=== PATIENT | female | born 1985 | race African-American/Black ===

== ENCOUNTER 2019-01-07 16:09 | Inpatient (IN) | payer MEDICAID, OTHER ==
[~2019-01-07] VITALS: Ht 170.2 cm; Wt 75.7 kg
[2019-01-07] MEDS ORDERED: DEXT 5%/LR + PITOCIN 20UNITS/L 1,000 ML IV ONE (17:01)
[2019-01-07] MEDS ORDERED: LACTATED RINGERS 1,000 ML IV SCH (17:06)
[2019-01-07] MEDS ORDERED: METHYLERGONOVINE MALEATE 0.2 MG/ML IM PRN (17:15)
[2019-01-07] MEDS ORDERED: CARBOPROST TROMETHAMINE 250 MCG/ML AMPUL IM PRN (17:15)
[2019-01-07] MEDS ORDERED: NALOXONE HCL 0.4 MG/ML 1ML VIAL IM PRN (17:15)
[2019-01-07] MEDS: DEXT 5%/LR + PITOCIN 20UNITS/L 1,000 ML IV SCH ×2 (17:33→17:34)
[2019-01-07] MEDS ORDERED: PENICILLIN G POTASSIUM 5 MMU in DEXT 5% WATER 100 ML IV SCH (18:00)
[2019-01-07 18:15] LABS: BASOPHILS % 0.8 % (0.0-2.0); EOSINOPHILS % 0.3 % (0.0-5.0); HEMATOCRIT. 32.5 % (36.0-48.0); HEMOGLOBIN. 10.2 g/dL (12.0-16.0); LYMPHOCYTES % 11.2 % (20.0-50.0); MEAN CORPUSCULAR HEMOGLOBIN 24.7 pg (28.0-32.0); MEAN PLATELET VOLUME 8.2 fl (7.4-10.4); MONOCYTES % 11.5 % (2.0-8.0); NEUTROPHILS % 76.2 % (40.0-76.0); PLATELET 366 x1000/uL (130-400); RED BLOOD CELL COUNT 4.12 mill/uL (4.2-5.4); RED CELL DISTRIBUTION WIDTH 16.6 % (11.6-14.6)
[2019-01-07 18:19] LABS: PARTIAL THROMBOPLASTIN TIME 26.8 sec (23.4-31.0); PROTHROMBIN TIME 9.9 sec (9.1-11.1)
[2019-01-07] MEDS: IBUPROFEN 800MG TABLET PO PRN ×2 (18:26→23:47)
[2019-01-07 18:49] LABS: HEPATITIS B SURFACE ANTIGEN NEGATIVE
[2019-01-07 21:00] VITALS: BP 130/68
[2019-01-07] MEDS ORDERED: LIDOCAINE HCL/EPINEPHRINE 1%-EPI 1:100,000 20 ML VIAL INFIL NR (21:15)
[2019-01-07] MEDS ORDERED: LIDOCAINE HCL 1% 20ML VIAL (Pyxis) INJ ONE (21:21)
[2019-01-07 21:30] VITALS: BP 127/64
[2019-01-07] MEDS ORDERED: PENICILLIN G POTASSIUM 2.5 MMU in DEXTROSE 5% WATER 50 ML IV SCH (22:00)
[2019-01-08 04:40] VITALS: BP 128/60
[2019-01-08 08:08] VITALS: BP 106/61
[2019-01-08] MEDS: IBUPROFEN 800MG TABLET PO PRN ×2 (10:08→16:04)
[2019-01-08 15:33] VITALS: BP 122/77
[2019-01-08 22:00] VITALS: BP 114/64
[2019-01-09] MEDS: IBUPROFEN 800MG TABLET PO PRN ×2 (03:25→09:22)
[2019-01-09 04:30] VITALS: BP 114/60
== END 2019-01-09 11:45 | disposition home or self-care (01) | DRG 560 ==
LOC: 8 EST LDRP 16:09 → OBSVTOIN 16:09 → 8EST 22:08
PROVIDERS: ADMIT Specialist; ATTEND Specialist
PROC: 10E0XZZ Delivery of Products of Conception, External Approach (ICD-10-PCS; principal; 2019-01-07)
PROC: 0KQM0ZZ Repair Perineum Muscle, Open Approach (ICD-10-PCS; 2019-01-07)
DX: O99.02 Anemia complicating childbirth (principal); D64.9 Anemia, unspecified; O70.1 Second degree perineal laceration during delivery; Z37.0 Single live birth; Z3A.38 38 weeks gestation of pregnancy
CPT/HCPCS: 36415; 86592; 86703; 86762; 86850; 86900; 87340; 99281; J2540; J2590; J3490; J7060